=== PATIENT | male | born 1955 | race Caucasian/White ===

== ENCOUNTER 2024-05-26 07:08 | Outpatient (OUT) | payer MEDICARE, SELFPAY ==
--- NOTE | 2024-05-26 07:14 | US_ITS ---
The [address] [address] Patient Name: KAYLEE JACKSON MRN: [id number] date: 1955 Sex: M Assigned Patient Location: US Current Patient Location: US Accession/Order Number: [id number] Exam Date: 05/26/2024 07:20 Report Date: 05/26/2024 09:34 At the request of: NON-STAFF PHYSICIAN Procedure: US renal BI EXAMINATION: US renal BI HISTORY: Retention of urine R33.9 COMPARISON: No relevant comparison available. TECHNIQUE: Ultrasound examination was performed of the bladder. FINDINGS: Right Kidney: Normal in size, contour and echotexture. The cortex measures 1.8 cm. Percutaneous nephrostomy catheter with no hydronephrosis Height: 6.91 cm Length: 10.33 cm Width: 6.16 cm The left kidney is surgically absent The bladder is absent. The neobladder was not tentatively visualized US/US renal BI IMPRESSION: Normal right kidney with no hydronephrosis Electronically authenticated by: JUAN LUIS CALDERON Date: 05/26/2024 09:34
== END 2024-05-26 07:09 | disposition home or self-care (01) ==
LOC: US 07:08
PROVIDERS: PCP Internal Medicine
DX: R33.9 Retention of urine, unspecified (principal)
CPT/HCPCS: 76775